=== PATIENT | female | born 1955 | race Caucasian/White ===

== ENCOUNTER → 2017-04-23 | Outpatient (CLI) | payer BC, OTHER | LOC: FIMAGING 10:27 | PROVIDERS: ATTEND Internal Medicine Interventional Cardiology | DX: Z13.6 Encounter for screening for cardiovascular disorders (principal); R94.31 Abnormal electrocardiogram [ECG] [EKG]; Z82.49 Family history of ischemic heart disease and other diseases of the circulatory system ==

== ENCOUNTER → 2017-05-14 | Outpatient (CLI) | payer BC ==
[~2017-05-14] MED LIST: IOPAMIDOL (ISOVUE-300) 100 ML BTL ONE
== END ==
LOC: FIMAGING 14:42
PROVIDERS: ATTEND Internal Medicine
DX: R10.9 Unspecified abdominal pain (principal)
CPT/HCPCS: Q9967

== ENCOUNTER 2017-09-15 13:12 | Day surgery (SDC) | payer BC ==
[2017-09-15] MEDS ORDERED: diphenhydrAMINE 25 MG CAP PO ONE (13:23)
[2017-09-15] MEDS ORDERED: DIAZEPAM 5 MG TAB PO ONE (13:23)
[2017-09-15] MEDS ORDERED: FAMOTIDINE 20 MG TAB PO ONE (13:23)
[2017-09-15] MEDS ORDERED: ASPIRIN EC 325 MG TAB PO ONE (13:23)
[2017-09-15] MEDS ORDERED: NS 1,000 ML IV ONE (13:23)
[2017-09-15] MEDS ORDERED: LIDOCAINE 1% 300 MG/30 ML SDV ONE (13:26)
[2017-09-15] MEDS ORDERED: fentaNYL 100 MCG/2 ML INJ ONE (13:26)
[2017-09-15] MEDS ORDERED: MIDAZOLAM 2 MG/2 ML VIAL ONE ×2 (13:27)
[2017-09-15] MEDS ORDERED: HEPARIN 10,000 UNIT/10 ML MDV ONE (13:27)
[2017-09-15] MEDS ORDERED: IOPAMIDOL (ISOVUE-370) 150 ML BTL IV ONE (13:27)
[2017-09-15] MEDS ORDERED: VERAPAMIL 5 MG/2 ML VIAL ONE (13:27)
--- NOTE | 2017-09-15 13:59 | CPEKG ---
Heart Rate: 67 RR Interval: 896 P-R Interval: 144 QRSD Interval: 88 QT Interval: 380 QTC Interval: 401 P [place]: 57 QRS [place]: 35 T Wave [place]: -41 EKG Severity - BORDERLINE ECG - EKG Impression: SINUS RHYTHM EKG Impression: BORDERLINE T ABNORMALITIES ANTERIOR LEADS Electronically Signed By: Natacha Mahoney 15-Sep-2017 14:30:32
--- NOTE | 2017-09-15 14:06 | PDPROPOC ---
Sedation Plan of Care Sedation Plan of Care: vital signs stable, mental status noted, patient educated of risks, benefits, alternatives, patient can tolerate sedation ASA Classification: ASA 2 Planned drugs: fentanyl, midazolam Mallampati Score: Class 1 Mallampati Reference Image: Patient passed 3-3-2 rule?: Yes
--- NOTE | 2017-09-15 14:07 | PDHPUP ---
History & Physical Update H&P update statement: This history and physical update is based on an assessment of the patient which was completed after admission or registration (within 24 hours), but prior to the surgery/procedure. H&P update: H&P reviewed & patient examined, no change in patient's condition since H&P completed H&P changes: Recent URI.
[2017-09-15 14:28] LABS: % IMMATURE GRANULYOCYTES 0.2 % (0.0-1.1); ABSOLUTE IMMATURE GRANULOCYTES 0.02 10^3/uL (0.00-0.10); ADD DIFF? NO; ADD MORPH? NO; ADD SCAN? NO; ATYPICAL LYMPHOCYTE FLAG 10 (0-99); FRAGMENT RBC FLAG 0 (0-99); HEMATOCRIT 40.4 % (38.0-47.0); LEFT SHIFT FLG 0 (0-99); LIPEMIA HEMOLYSIS FLAG 90 (0-99); MEAN CELL HEMOGLOBIN 30.8 pg (27.9-34.1); MEAN CELL HEMOGLOBIN CONCENTR. 34.7 g/dL (32.4-36.7); MEAN PLATELET VOLUME 9.1 fL (8.7-11.7); PLATELET CLUMPS FLAG 10 (0-99); PLATELET COUNT 226 10^3/uL (150-400); RED BLOOD CELL COUNT 4.54 10^6/uL (4.18-5.33); RED CELL DISTRIBUTION WIDTH 12.5 % (11.5-15.2)
[2017-09-15 14:41] LABS: INR 1.08 (0.83-1.16); PROTIME(PATIENT) 14.2 SEC (12.0-15.0)
[2017-09-15 14:43] LABS: ANION GAP 12 mEq/L (8-16); CALCIUM 9.5 mg/dL (8.5-10.4); CARBON DIOXIDE 24 mEq/l (22-31); CHLORIDE 107 mEq/L (97-110); CHOLESTEROL 118 mg/dL (140-220); CHOLESTEROL/HDL RATIO 3.93 RATIO (1.00-4.44); CREATININE 0.7 mg/dL (0.6-1.0); GLOMERULAR FILTRATION RATE > 60; GLUCOSE 89 mg/dL (70-100); HIGH DENSITY LIPOPROTEIN 30 mg/dL (40-85); LDL/HDL RATIO 2.27 RATIO (1.00-3.22); LOW DENSITY LIPOPROTEIN 68 mg/dL (80-100); MAGNESIUM 1.9 mg/dL (1.6-2.3); NON-HIGH DENSITY LIPOPROTEIN 88 mg/dL (90-129); POTASSIUM 4.4 mEq/L (3.5-5.2); SODIUM 143 mEq/L (134-144); TRIGLYCERIDE 100 mg/dL (35-135); VERY LOW DENSITY LIPOPROTEINS 20 mg/dL (8-25)
[2017-09-15] MEDS ORDERED: ATROPINE SULFATE 1 MG/10 ML SYR IVP PRN (15:05)
[2017-09-15] MEDS ORDERED: ONDANSETRON 4 MG/2 ML VIAL IVP PRN (15:05)
[2017-09-15] MEDS ORDERED: NITROGLYCERIN 0.4 MG BTL SL PRN (15:05)
--- NOTE | 2017-09-15 15:05 | PDDXCAT ---
Diagnostic Cath Note - . Date: 09/15/17 Framing Machine Tender: Mirza High-risk criteria on non-invasive testing: stress-induced moderate-size multiple perfusion defects - Procedure Access: right wrist Procedure: left heart catheterization, coronary angiography, left ventriculogram - Materials Left Heart Cath size: 5F Left Heart Cath materials: JL3.5, pigtail, other (SiteSeer 4) - Findings-Left Heart Catheterization LM: Normal LAD: Normal LCX: Normal RCA: Dominant: Normal EDP: 12 mmhg LVEF: 65% Wall motion: normal Complications: none Estimated blood loss: <50ml Closure method: TR Band Assessment: Angiographically normal cors. Normal LV systolic function. Plan: Primary prevention.
== END 2017-09-15 17:18 | disposition home or self-care (01) ==
LOC: FCATH 13:12
PROVIDERS: ATTEND Internal Medicine Interventional Cardiology
DX: I20.9 Angina pectoris, unspecified (principal); R94.39 Abnormal result of other cardiovascular function study; E78.4 Other hyperlipidemia; Z79.82 Long term (current) use of aspirin; Z82.49 Family history of ischemic heart disease and other diseases of the circulatory system
CPT/HCPCS: 93005; 93458; C1769; J1644; J2250; J3010; Q9967

== ENCOUNTER → 2017-11-15 | Outpatient (CLI) | payer BC | LOC: FIMAGING 16:05 | PROVIDERS: ATTEND Internal Medicine Pulmonary Disease | DX: R06.00 Dyspnea, unspecified (principal) ==

== ENCOUNTER → 2018-11-16 | Outpatient (CLI) | payer OTHER | LOC: FIMAGING 13:38 | PROVIDERS: ATTEND Internal Medicine | DX: R05 Cough (principal); R06.00 Dyspnea, unspecified ==